=== PATIENT | female | born 1975 | race Caucasian/White ===

== ENCOUNTER → 2017-02-27 | Outpatient (REF) ==
--- NOTE | 2017-02-27 15:27 | REP ---
RIGHT HAND, FOUR VIEWS: HISTORY: Degenerative joint disease. There is no acute fracture or dislocation. The joint spaces are normal in appearance. IMPRESSION: There is no acute fracture or dislocation. Signed by Alberto Lucas MD 02/27/2017 03:43 P
== END ==
LOC: M SMT 14:25
PROVIDERS: ATTEND Internal Medicine
DX: Z02.71 Encounter for disability determination (principal)